=== PATIENT | female | born 1985 | race Caucasian/White ===

== ENCOUNTER 2017-05-14 15:04 | Inpatient (IN) ==
[2017-05-14] MEDS ORDERED: LACTATED RINGERS 1,000 ML IV SCH (17:30)
[2017-05-14] MEDS ORDERED: OXYTOCIN/LR 20 UNIT/1,000 ML BAG IV SCH (17:30)
[2017-05-14] MEDS ORDERED: FAMOTIDINE 20 MG/2 ML VIAL IV ONE (17:43)
[2017-05-14] MEDS ORDERED: PROMETHAZINE 25 MG/1 ML VIAL IM ONE (17:43)
[2017-05-14] MEDS ORDERED: LACTATED RINGERS 1,000 ML IV ONE (17:43)
[2017-05-14] MEDS ORDERED: hydrOXYzine HCL 25 MG/1 ML VIAL IM PRN (17:43)
[2017-05-14] MEDS ORDERED: ePHEDrine 50 MG/ML AMP IV PRN (17:43)
[2017-05-14] MEDS ORDERED: CITRIC ACID/SODIUM CITRATE 30 ML UDCUP PO ONE (17:43)
[2017-05-14] MEDS ORDERED: diphenhydrAMINE 50 MG/1 ML VIAL IV PRN ×2 (17:43)
[2017-05-14] MEDS ORDERED: BUTORPHANOL 2 MG/ML VIAL IV PRN (17:47)
[2017-05-14] MEDS ORDERED: BUTORPHANOL 2 MG/ML VIAL ONE (17:48)
[2017-05-14] MEDS: ONDANSETRON 4 MG/2 ML VIAL IV PRN ×2 (17:52→23:04)
[2017-05-14] MEDS ORDERED: fentaNYL 2 MCG/ROPIV 0.2% EPID 150 ML EPIDURAL SCH (18:00)
[2017-05-14 18:01] LABS: Basophils % 0.3 % (0.0-0.8); Eosinophils # 0.1 10*3/uL (0.0-0.87); Eosinophils % 0.4 % (0.00-10.9); Hematocrit 33.8 VOL% (35.7-47.0); Hemoglobin 11.2 GM/DL (12.0-16.0); Immature Granulocytes % 0.4 %; Immature Granulocytes Absolute 0.05 #; Lymphocytes # 2.1 10*3/uL (1.4-4.0); Lymphocytes % 17.9 % (21.3-54.2); Mean Corpuscular HGB Conc 33.1 GM/DL (32-36); Mean Corpuscular Hemoglobin 30 PG (27-34); Mean Corpuscular Volume 91.8 FL (87-102); Mean Platelet Volume 11.2 FL (9.6-12.0); Monocytes # 0.7 10*3/uL (0.11-0.8); Neutrophils # 8.7 10*3/uL (1.4-7.4); Platelet Count 223 T/CUMM (130-400); Red Blood Count 3.68 MC/CUMM (3.8-5.5); Red Cell Distribution Width 13.2 % (9.3-17.3); White Blood Count 11.6 T/CUMM (4-12)
[2017-05-14] MEDS ORDERED: ROPIVACAINE 0.5% 30 ML VIAL ONE (19:08)
[2017-05-14] MEDS ORDERED: LANOLIN 50% CREAM 0.3 OZ TUBE TOP PRN (21:51)
[2017-05-14] MEDS ORDERED: RHO(D) IMMUNE GLOBULIN 300 MCG SYRINGE IM ONE (21:51)
[2017-05-14] MEDS ORDERED: BENZOCAINE 20%/MENTHOL 0.5% SPRAY 56 GM CAN TOP PRN (21:51)
[2017-05-14] MEDS ORDERED: oxyCODONE/ACETAMINOPHEN 5-325 MG TABLET PO PRN (21:51)
[2017-05-14] MEDS ORDERED: DIPH/TET/ACEL PERT BOOSTER VACCINE 0.5 ML VIAL IM ONE (21:51)
[2017-05-14] MEDS ORDERED: BISACODYL 10 MG SUPP RECTAL PRN (21:51)
[2017-05-14] MEDS ORDERED: MEASLES/MUMPS/RUBELLA VACCINE 0.5 ML VIAL SUBCUT ONE (21:51)
[2017-05-14] MEDS ORDERED: HYDROCORTISONE 2.5% RECTAL CREAM 30 GM TUBE TOP PRN (21:51)
[2017-05-14] MEDS ORDERED: WITCH HAZEL PADS 100/JAR TOP PRN (21:51)
[2017-05-14] MEDS ORDERED: ACETAMINOPHEN 325 MG TABLET PO PRN (21:51)
[2017-05-15] MEDS ORDERED: PROMETHAZINE 25 MG/1 ML VIAL ONE (00:39)
[2017-05-15] MEDS: IBUPROFEN 800 MG TABLET PO PRN ×3 (00:49→16:52)
[2017-05-15] MEDS: oxyCODONE/ACETAMINOPHEN 5-325 MG TABLET PO PRN ×4 (02:20→21:50)
[2017-05-15 07:00] LABS: Basophils % 0.2 % (0.0-0.8); Eosinophils % 0.3 % (0.00-10.9); Hematocrit 30.2 VOL% (35.7-47.0); Immature Granulocytes % 0.6 %; Immature Granulocytes Absolute 0.07 #; Lymphocytes # 1.9 10*3/uL (1.4-4.0); Lymphocytes % 15.5 % (21.3-54.2); Mean Corpuscular HGB Conc 33.1 GM/DL (32-36); Mean Corpuscular Hemoglobin 31 PG (27-34); Mean Corpuscular Volume 92.1 FL (87-102); Mean Platelet Volume 11.3 FL (9.6-12.0); Monocytes # 0.7 10*3/uL (0.11-0.8); Monocytes % 5.6 % (1.7-12.7); Neutrophils # 9.4 10*3/uL (1.4-7.4); Neutrophils % 77.8 % (38.7-73.9); Platelet Count 168 T/CUMM (130-400); Red Blood Count 3.28 MC/CUMM (3.8-5.5); Red Cell Distribution Width 13.2 % (9.3-17.3)
[2017-05-15] MEDS: PROMETHAZINE 25 MG TABLET PO PRN ×2 (08:50→21:50)
[2017-05-15] MEDS: DOCUSATE SODIUM 100 MG CAPSULE PO SCH ×2 (09:05→21:50)
[2017-05-16] MEDS: IBUPROFEN 800 MG TABLET PO PRN ×3 (02:12→18:26)
[2017-05-16] MEDS: oxyCODONE/ACETAMINOPHEN 5-325 MG TABLET PO PRN ×3 (04:16→18:27)
[2017-05-16] MEDS: PROMETHAZINE 25 MG TABLET PO PRN ×2 (08:01→15:41)
[2017-05-16] MEDS: DOCUSATE SODIUM 100 MG CAPSULE PO SCH ×2 (09:23→21:20)
[2017-05-16 13:42] LABS: Basophils % 0.4 % (0.0-0.8); Eosinophils # 0.2 10*3/uL (0.0-0.87); Eosinophils % 1.4 % (0.00-10.9); Hematocrit 31.3 VOL% (35.7-47.0); Hemoglobin 10.5 GM/DL (12.0-16.0); Immature Granulocytes % 0.5 %; Immature Granulocytes Absolute 0.05 #; Lymphocytes # 2.4 10*3/uL (1.4-4.0); Lymphocytes % 22.9 % (21.3-54.2); Mean Corpuscular HGB Conc 33.5 GM/DL (32-36); Mean Corpuscular Hemoglobin 31 PG (27-34); Mean Platelet Volume 10.7 FL (9.6-12.0); Monocytes # 0.6 10*3/uL (0.11-0.8); Monocytes % 5.7 % (1.7-12.7); Neutrophils # 7.3 10*3/uL (1.4-7.4); Neutrophils % 69.1 % (38.7-73.9); Platelet Count 210 T/CUMM (130-400); Red Blood Count 3.44 MC/CUMM (3.8-5.5); Red Cell Distribution Width 13.4 % (9.3-17.3); White Blood Count 10.6 T/CUMM (4-12)
[2017-05-16 18:10] LABS: Apearance,Urine CLEAR (Clear); Bilirubin,Urine Negative (Negative); Blood, Urine Large mg/dL (Negative); Glucose,Urine (UA) Negative (Negative); Ketones,Urine Negative (Negative); Nitrite,Urine Negative (Negative); Protein,Urine Negative; RBC,Urine 75 /HPF (0-4); Squamous Epithelial Cell,Urine Occasional /HPF (0-10); Urine Color Straw (Yellow); Urine Specific Gravity 1.008 (1.001-1.035); Urine Urobilinogen < 2.0 EU/DL (0.2-1.0); WBC,Urine 2 /HPF (0-6)
[2017-05-17] MEDS: oxyCODONE/ACETAMINOPHEN 5-325 MG TABLET PO PRN ×2 (00:07→06:29)
[2017-05-17] MEDS: IBUPROFEN 800 MG TABLET PO PRN ×2 (00:08→06:28)
[2017-05-17 10:11] VITALS: BP 128/85
== END 2017-05-17 12:20 | disposition home or self-care (01) | DRG 560 ==
LOC: N.LDOUT 15:04 → N.LD 15:28 → N.OB 05-15 00:27
PROVIDERS: ADMIT Obstetrics & Gynecology; ATTEND Obstetrics & Gynecology

== ENCOUNTER 2017-05-24 13:10 | Inpatient (IN) ==
[2017-05-24 14:39] LABS: Apearance,Urine CLOUDY (Clear); Bacteria,Urine Occasional /HPF (Few); Bilirubin,Urine Negative (Negative); Blood, Urine Large mg/dL (Negative); Glucose,Urine (UA) Negative (Negative); Ketones,Urine Negative (Negative); Mucus,Urine Occasional /LPF (Occasional); Nitrite,Urine Negative (Negative); Protein,Urine 30 MG/DL; RBC,Urine 874 /HPF (0-4); Squamous Epithelial Cell,Urine Occasional /HPF (0-10); Urine Color Yellow (Yellow); Urine Specific Gravity 1.015 (1.001-1.035); Urine Urobilinogen < 2.0 EU/DL (0.2-1.0); WBC,Urine 213 /HPF (0-6)
[2017-05-24] MEDS ORDERED: OXYTOCIN/LR 20 UNIT/1,000 ML BAG IV ONE ×3 (17:00→21:30)
[2017-05-24] MEDS ORDERED: cefTRIAXone 1,000 MG in SODIUM CHLORIDE 0.9% 100 ML IV STA (17:13)
[2017-05-24] MEDS ORDERED: SODIUM CHLORIDE 0.9% 1,000 ML IV STA (17:13)
[2017-05-24] MEDS ORDERED: cefTRIAXone 1,000 MG VIAL ONE (18:05)
[2017-05-24] MEDS ORDERED: GENTAMICIN INJ 120 MG in SODIUM CHLORIDE 0.9% 100 ML IV STA ×2 (18:11→18:18)
[2017-05-24 18:19] LABS: Basophils # 0.1 10*3/uL (0.0-0.2); Basophils % 0.5 % (0.0-0.8); Eosinophils # 0.1 10*3/uL (0.0-0.87); Eosinophils % 0.8 % (0.00-10.9); Hematocrit 38.1 VOL% (35.7-47.0); Immature Granulocytes % 0.3 %; Immature Granulocytes Absolute 0.03 #; Lymphocytes # 2.7 10*3/uL (1.4-4.0); Lymphocytes % 24.7 % (21.3-54.2); Mean Corpuscular HGB Conc 34.1 GM/DL (32-36); Mean Corpuscular Hemoglobin 30 PG (27-34); Mean Platelet Volume 9.8 FL (9.6-12.0); Monocytes # 0.6 10*3/uL (0.11-0.8); Monocytes % 5.2 % (1.7-12.7); Neutrophils # 7.4 10*3/uL (1.4-7.4); Neutrophils % 68.5 % (38.7-73.9); Platelet Count 316 T/CUMM (130-400); Red Blood Count 4.28 MC/CUMM (3.8-5.5); Red Cell Distribution Width 12.9 % (9.3-17.3); White Blood Count 10.8 T/CUMM (4-12)
[2017-05-24 18:29] LABS: Lactic Acid 0.8 MMOL/L (0.4-2.0)
[2017-05-24 18:30] LABS: Albumin 3.4 G/DL (3.4-5.0); Bilirubin,Total 0.4 MG/DL (0.2-1.0); Calcium 8.8 MG/DL (8.5-10.1); Osmolality,Calculated 275.5 MOS/KG (273-304); Potassium 3.6 MMOL/L (3.5-5.1); Total Protein 7.5 G/DL (6.4-8.3)
[2017-05-24] MEDS ORDERED: GENTAMICIN 80 MG/2 ML VIAL ONE (18:47)
[2017-05-24] MEDS ORDERED: SCOPOLAMINE 1.5 MG PATCH TRANSDERM ONE (19:01)
[2017-05-24] MEDS ORDERED: ACETAMINOPHEN 325 MG TABLET PO PRN (19:26)
[2017-05-24] MEDS ORDERED: ONDANSETRON 4 MG/2 ML VIAL IV PRN (19:26)
[2017-05-24] MEDS ORDERED: MEPERIDINE 25 MG/1 ML VIAL IM PRN (19:26)
[2017-05-24] MEDS ORDERED: BENZOCAINE/MENTHOL LOZENGE 18/BOX PO PRN (19:26)
[2017-05-24] MEDS ORDERED: IBUPROFEN 800 MG TABLET PO PRN (19:26)
[2017-05-24] MEDS ORDERED: oxyCODONE/ACETAMINOPHEN 5-325 MG TABLET PO PRN ×2 (19:26→21:31)
[2017-05-24] MEDS ORDERED: HYDROmorphone 2 MG/1 ML VIAL ONE (19:45)
[2017-05-24] MEDS ORDERED: PROPOFOL 200 MG/20 ML VIAL IV ONE (19:48)
[2017-05-24] MEDS ORDERED: SEVOFLURANE 1 UNIT/15 MINUTE INH ONE (19:48)
[2017-05-24] MEDS ORDERED: LACTATED RINGERS 1,000 ML IV ONE (19:49)
[2017-05-24] MEDS ORDERED: MIDAZOLAM 2 MG/2 ML VIAL ONE (19:49)
[2017-05-24] MEDS ORDERED: ACETAMINOPHEN 1,000 MG/100 ML VIAL IV ONE (19:49)
[2017-05-24] MEDS ORDERED: PROMETHAZINE 25 MG/1 ML VIAL ONE (19:49)
[2017-05-24] MEDS ORDERED: fentaNYL 100 MCG/2 ML VIAL ONE (19:49)
[2017-05-24] MEDS ORDERED: KETOROLAC 30 MG/1 ML VIAL ONE (19:49)
[2017-05-24] MEDS: HYDROmorphone 2 MG/1 ML VIAL IV PRN ×4 (19:50→20:05)
[2017-05-24] MEDS ORDERED: MEPERIDINE 25 MG/1 ML VIAL ONE ×2 (20:14→20:29)
[2017-05-24] MEDS: MEPERIDINE 25 MG/1 ML VIAL IV PRN ×2 (20:20→20:30)
[2017-05-24] MEDS ORDERED: METHYLERGONOVINE 0.2 MG/1 ML AMP IM ONE (21:00)
[2017-05-24] MEDS ORDERED: NALOXONE 0.4 MG/ML VIAL IV PRN (22:01)
[2017-05-24] MEDS ORDERED: MORPHINE PCA 30 MG/30 ML SYRINGE IV ONE (22:04)
[2017-05-24] MEDS ORDERED: MORPHINE PCA 30 MG/30 ML SYRINGE IV SCH (22:30)
[2017-05-25] MEDS: AMPICILLIN/SULBACTAM 1,500 MG in SODIUM CHLORIDE 0.9% 100 ML IV SCH ×3 (00:48→11:30)
[2017-05-25] MEDS ORDERED: LACTATED RINGERS 1,000 ML IV SCH (05:30)
[2017-05-25] MEDS: METHYLERGONOVINE 0.2 MG TABLET PO SCH ×2 (05:49→14:53)
[2017-05-25] MEDS ORDERED: MORPHINE PCA 30 MG/30 ML SYRINGE IV SCH (08:15)
[2017-05-25] MEDS ORDERED: NALOXONE 0.4 MG/ML VIAL IV PRN (08:32)
[2017-05-25 08:40] VITALS: BP 128/71
[2017-05-25] MEDS ORDERED: PROMETHAZINE 25 MG TABLET PO ONE (11:18)
== END 2017-05-25 13:45 | disposition home or self-care (01) | DRG 544 ==
LOC: N.ED 13:10 → N.OB 19:00 → N.ED 19:00 → OBSVTOIN 20:30 → N.EDINP 20:30 → INTOOBSV 20:30 → N.OB 21:05
PROVIDERS: ADMIT Obstetrics & Gynecology; ATTEND Obstetrics & Gynecology

== ENCOUNTER 2017-05-26 18:55 | Inpatient (IN) ==
[2017-05-26 19:43] LABS: Basophils # 0.1 10*3/uL (0.0-0.2); Basophils % 0.6 % (0.0-0.8); Eosinophils # 0.1 10*3/uL (0.0-0.87); Hematocrit 33.7 VOL% (35.7-47.0); Hemoglobin 11.1 GM/DL (12.0-16.0); Immature Granulocytes % 0.4 %; Immature Granulocytes Absolute 0.03 #; Lymphocytes # 2.8 10*3/uL (1.4-4.0); Lymphocytes % 35.2 % (21.3-54.2); Mean Corpuscular HGB Conc 32.9 GM/DL (32-36); Mean Corpuscular Hemoglobin 30 PG (27-34); Mean Corpuscular Volume 90.3 FL (87-102); Mean Platelet Volume 9.8 FL (9.6-12.0); Monocytes # 0.4 10*3/uL (0.11-0.8); Monocytes % 4.7 % (1.7-12.7); Neutrophils # 4.7 10*3/uL (1.4-7.4); Neutrophils % 58.1 % (38.7-73.9); Platelet Count 294 T/CUMM (130-400); Red Blood Count 3.73 MC/CUMM (3.8-5.5); Red Cell Distribution Width 12.9 % (9.3-17.3)
[2017-05-26 20:00] LABS: Alanine Aminotransferase 29 U/L (13-56); Albumin 3.2 G/DL (3.4-5.0); Alkaline Phosphatase 94 U/L (45-117); Aspartate Amino Transferase 17 U/L (0-37); Bilirubin,Total < 0.39 MG/DL (0.2-1.0); Blood Urea Nitrogen 9 MG/DL (7-18); Calcium 8.3 MG/DL (8.5-10.1); Glucose 84 MG/DL (74-106); Magnesium 1.7 MG/DL (1.8-2.4); Osmolality,Calculated 276.4 MOS/KG (273-304); Potassium 3.5 MMOL/L (3.5-5.1); Sodium 140 MMOL/L (136-145); Total Protein 6.7 G/DL (6.4-8.3)
[2017-05-26] MEDS ORDERED: ONDANSETRON 4 MG/2 ML VIAL IV STA (20:35)
[2017-05-26] MEDS ORDERED: SODIUM CHLORIDE 0.9% 1,000 ML IV STA (20:35)
[2017-05-26] MEDS ORDERED: MORPHINE 2 MG/1 ML SYRINGE IV STA ×2 (20:36→21:31)
[2017-05-26 20:41] LABS: Apearance,Urine CLEAR (Clear); Bilirubin,Urine Negative (Negative); Blood, Urine Large mg/dL (Negative); Glucose,Urine (UA) Negative (Negative); Ketones,Urine Negative (Negative); Mucus,Urine Occasional /LPF (Occasional); Nitrite,Urine Negative (Negative); Protein,Urine Negative; RBC,Urine 33 /HPF (0-4); Squamous Epithelial Cell,Urine Occasional /HPF (0-10); Urine Color Straw (Yellow); Urine Specific Gravity 1.009 (1.001-1.035); Urine Urobilinogen < 2.0 EU/DL (0.2-1.0); WBC,Urine 5 /HPF (0-6)
[2017-05-26] MEDS ORDERED: ACETAMINOPHEN 325 MG TABLET PO PRN (20:54)
[2017-05-26] MEDS ORDERED: ONDANSETRON 4 MG/2 ML VIAL IV PRN (20:54)
[2017-05-26] MEDS ORDERED: BISACODYL 10 MG SUPP RECTAL PRN (20:54)
[2017-05-26] MEDS ORDERED: MAGNESIUM HYDROXIDE SUSP 30 ML UDCUP PO PRN (20:54)
[2017-05-26] MEDS ORDERED: IBUPROFEN 800 MG TABLET PO PRN (20:54)
[2017-05-26] MEDS ORDERED: MORPHINE 2 MG/1 ML SYRINGE IV PRN (20:54)
[2017-05-26] MEDS ORDERED: MORPHINE 10 MG/1 ML VIAL ONE (20:58)
[2017-05-26] MEDS ORDERED: ONDANSETRON 4 MG/2 ML VIAL ONE (20:59)
[2017-05-26] MEDS ORDERED: OXYTOCIN IV SCH (21:00)
[2017-05-26] MEDS ORDERED: LACTATED RINGERS IV SCH (21:00)
[2017-05-26 21:28] LABS: Lactic Acid 0.8 MMOL/L (0.4-2.0)
[2017-05-26] MEDS ORDERED: OXYTOCIN/LR 20 UNIT/1,000 ML BAG IV ONE (22:22)
[2017-05-26] MEDS: KETOROLAC 15 MG/1 ML VIAL IV PRN (22:38)
[2017-05-27] MEDS: DOCUSATE SODIUM 100 MG CAPSULE PO SCH ×3 (00:19→20:43)
[2017-05-27] MEDS ORDERED: oxyCODONE/ACETAMINOPHEN 5-325 MG TABLET PO PRN (01:44)
[2017-05-27] MEDS: oxyCODONE/ACETAMINOPHEN 5-325 MG TABLET PO PRN (03:38)
[2017-05-27 07:19] LABS: Basophils % 0.6 % (0.0-0.8); Eosinophils # 0.1 10*3/uL (0.0-0.87); Eosinophils % 1.4 % (0.00-10.9); Hematocrit 30.3 VOL% (35.7-47.0); Hemoglobin 9.9 GM/DL (12.0-16.0); Immature Granulocytes % 0.3 %; Immature Granulocytes Absolute 0.02 #; Lymphocytes # 2.6 10*3/uL (1.4-4.0); Lymphocytes % 39.8 % (21.3-54.2); Mean Corpuscular HGB Conc 32.7 GM/DL (32-36); Mean Corpuscular Hemoglobin 30 PG (27-34); Mean Corpuscular Volume 91.8 FL (87-102); Mean Platelet Volume 10.2 FL (9.6-12.0); Monocytes # 0.4 10*3/uL (0.11-0.8); Monocytes % 5.9 % (1.7-12.7); Neutrophils # 3.3 10*3/uL (1.4-7.4); Platelet Count 252 T/CUMM (130-400); White Blood Count 6.4 T/CUMM (4-12)
[2017-05-27] MEDS ORDERED: OXYTOCIN/LR 20 UNIT/1,000 ML BAG IV ONE (08:03)
[2017-05-27] MEDS ORDERED: OXYTOCIN/LR 20 UNIT/1,000 ML BAG IV SCH (08:30)
[2017-05-27] MEDS: KETOROLAC 15 MG/1 ML VIAL IV PRN (08:54)
[2017-05-27] MEDS: PANTOPRAZOLE 40 MG TABLET PO SCH (10:08)
[2017-05-27] MEDS ORDERED: HYDROmorphone PCA 30 MG/30 ML SYRINGE IV ONE (12:35)
[2017-05-27] MEDS ORDERED: LACTATED RINGERS 1,000 ML IV SCH (12:45)
[2017-05-27] MEDS ORDERED: NALOXONE 0.4 MG/ML VIAL IV PRN (12:56)
[2017-05-27] MEDS ORDERED: HYDROmorphone PCA 30 MG/30 ML SYRINGE IV SCH (13:00)
[2017-05-27] MEDS: PROMETHAZINE 25 MG/1 ML VIAL IM PRN ×2 (14:56→22:32)
[2017-05-27] MEDS ORDERED: KETOROLAC 30 MG/1 ML VIAL IM ONE (15:01)
[2017-05-27] MEDS ORDERED: KETOROLAC 30 MG/1 ML VIAL IV ONE (15:01)
[2017-05-27] MEDS ORDERED: KETOROLAC 30 MG/1 ML VIAL IV PRN (20:00)
[2017-05-28 06:31] LABS: Hematocrit 31.2 VOL% (35.7-47.0)
[2017-05-28] MEDS: PROMETHAZINE 25 MG/1 ML VIAL IM PRN (07:35)
[2017-05-28] MEDS ORDERED: GABAPENTIN 400 MG CAPSULE PO ONE (09:00)
[2017-05-28] MEDS ORDERED: SCOPOLAMINE 1.5 MG PATCH TRANSDERM ONE (09:00)
[2017-05-28] MEDS ORDERED: DIAZEPAM 5 MG TABLET PO ONE (09:00)
[2017-05-28] MEDS ORDERED: FAMOTIDINE 20 MG TABLET PO ONE (09:00)
[2017-05-28] MEDS ORDERED: VASOPRESSIN 20 UNITS/ML VIAL ONE ×2 (12:49→13:46)
[2017-05-28] MEDS: PANTOPRAZOLE 40 MG TABLET PO SCH (13:01)
[2017-05-28] MEDS: DOCUSATE SODIUM 100 MG CAPSULE PO SCH ×2 (13:32→22:29)
[2017-05-28] MEDS: LACTATED RINGERS 1,000 ML IV SCH ×4 (13:45→20:35)
[2017-05-28] MEDS ORDERED: ceFAZolin 1,000 MG VIAL ONE (14:23)
[2017-05-28] MEDS ORDERED: ceFAZolin 2,000 MG in PREMIX 1 EACH IV ONE (14:42)
[2017-05-28] MEDS ORDERED: FLUORESCEIN 500 MG/5 ML VIAL IV ONE (15:45)
[2017-05-28] MEDS ORDERED: TISSUE ADHESIVE 1 EACH APPLICATOR TOP ONE (15:50)
[2017-05-28] MEDS ORDERED: BENZOCAINE/MENTHOL LOZENGE 18/BOX PO PRN (16:19)
[2017-05-28] MEDS ORDERED: MEPERIDINE 25 MG/1 ML VIAL ONE (16:30)
[2017-05-28] MEDS ORDERED: ONDANSETRON 4 MG/2 ML VIAL ONE ×2 (16:30→16:34)
[2017-05-28] MEDS ORDERED: fentaNYL 100 MCG/2 ML VIAL ONE (16:33)
[2017-05-28] MEDS ORDERED: PROPOFOL 200 MG/20 ML VIAL IV ONE (16:33)
[2017-05-28] MEDS ORDERED: SEVOFLURANE 1 UNIT/15 MINUTE INH ONE (16:33)
[2017-05-28] MEDS ORDERED: MIDAZOLAM 2 MG/2 ML VIAL ONE (16:33)
[2017-05-28] MEDS ORDERED: NEOSTIGMINE 10 MG/10 ML VIAL ONE (16:34)
[2017-05-28] MEDS ORDERED: DEXAMETHASONE 10 MG/1 ML VIAL ONE (16:34)
[2017-05-28] MEDS ORDERED: PROMETHAZINE 25 MG/1 ML VIAL ONE (16:34)
[2017-05-28] MEDS ORDERED: ACETAMINOPHEN 1,000 MG/100 ML VIAL IV ONE (16:34)
[2017-05-28] MEDS ORDERED: GLYCOPYRROLATE 0.4 MG/2 ML VIAL ONE (16:34)
[2017-05-28] MEDS ORDERED: KETOROLAC 30 MG/1 ML VIAL ONE (16:34)
[2017-05-28] MEDS ORDERED: ROCURONIUM 100 MG/10 ML VIAL IV ONE (16:35)
[2017-05-28] MEDS ORDERED: LACTATED RINGERS 2,000 ML IV ONE (16:35)
[2017-05-28] MEDS ORDERED: ONDANSETRON 4 MG/2 ML VIAL IV PRN (16:47)
[2017-05-28] MEDS ORDERED: PROMETHAZINE INJ 25 MG in SODIUM CHLORIDE 0.9% 50 ML IV PRN (16:47)
[2017-05-28] MEDS ORDERED: HYDROmorphone 2 MG/1 ML VIAL IV PRN (16:47)
[2017-05-28] MEDS ORDERED: MEPERIDINE 25 MG/1 ML VIAL IV PRN (16:56)
[2017-05-28 17:06] LABS: Apearance,Urine CLEAR (Clear); Bilirubin,Urine Negative (Negative); Blood, Urine Negative (Negative); Glucose,Urine (UA) Negative (Negative); Ketones,Urine Negative (Negative); Nitrite,Urine Negative (Negative); Protein,Urine Negative; RBC,Urine <1 /HPF (0-4); Squamous Epithelial Cell,Urine Occasional /HPF (0-10); Urine Color Straw (Yellow); Urine Specific Gravity 1.004 (1.001-1.035); Urine Urobilinogen < 2.0 EU/DL (0.2-1.0); WBC,Urine 1 /HPF (0-6)
[2017-05-28 17:28] LABS: Hemoglobin 10.4 GM/DL (12.0-16.0)
[2017-05-28] MEDS: ceFAZolin 1,000 MG in SYRINGE 1 EACH IV SCH (22:32)
[2017-05-29] MEDS: LACTATED RINGERS 1,000 ML IV SCH ×3 (03:58→20:07)
[2017-05-29 05:52] LABS: Basophils % 0.1 % (0.0-0.8); Hematocrit 25.9 VOL% (35.7-47.0); Hemoglobin 8.5 GM/DL (12.0-16.0); Immature Granulocytes % 0.4 %; Immature Granulocytes Absolute 0.03 #; Lymphocytes # 1.8 10*3/uL (1.4-4.0); Lymphocytes % 20.8 % (21.3-54.2); Mean Corpuscular HGB Conc 32.8 GM/DL (32-36); Mean Corpuscular Hemoglobin 30 PG (27-34); Mean Corpuscular Volume 92.5 FL (87-102); Mean Platelet Volume 9.8 FL (9.6-12.0); Monocytes # 0.5 10*3/uL (0.11-0.8); Monocytes % 5.3 % (1.7-12.7); Neutrophils # 6.3 10*3/uL (1.4-7.4); Neutrophils % 73.4 % (38.7-73.9); Platelet Count 252 T/CUMM (130-400); Red Cell Distribution Width 12.7 % (9.3-17.3); White Blood Count 8.5 T/CUMM (4-12)
[2017-05-29] MEDS: ceFAZolin 1,000 MG in SYRINGE 1 EACH IV SCH (06:19)
[2017-05-29] MEDS: DOCUSATE SODIUM 100 MG CAPSULE PO SCH ×2 (08:03→20:46)
[2017-05-29] MEDS: PANTOPRAZOLE 40 MG TABLET PO SCH (08:03)
[2017-05-29] MEDS: oxyCODONE/ACETAMINOPHEN 5-325 MG TABLET PO PRN ×3 (09:38→22:12)
[2017-05-29] MEDS: KETOROLAC 10 MG TABLET PO PRN ×2 (10:48→18:05)
[2017-05-30] MEDS: LACTATED RINGERS 1,000 ML IV SCH (04:05)
[2017-05-30] MEDS: KETOROLAC 10 MG TABLET PO PRN (04:58)
[2017-05-30 08:26] VITALS: BP 122/73
[2017-05-30] MEDS: PANTOPRAZOLE 40 MG TABLET PO SCH (09:00)
[2017-05-30] MEDS: DOCUSATE SODIUM 100 MG CAPSULE PO SCH (09:00)
[2017-05-30] MEDS: oxyCODONE/ACETAMINOPHEN 5-325 MG TABLET PO PRN (09:51)
[2017-05-30] MEDS ORDERED: PROMETHAZINE 25 MG TABLET PO ONE (12:55)
== END 2017-05-30 13:25 | disposition home or self-care (01) | DRG 546 ==
LOC: N.ED 18:55 → N.EDINP 21:26 → N.OB 21:39
PROVIDERS: ADMIT Obstetrics & Gynecology; ATTEND Obstetrics & Gynecology